=== PATIENT | female | born 1970 | race Two or more races ===

== ENCOUNTER 2024-03-02 09:46 | Emergency (ER) | payer BC ==
[~2024-03-02] VITALS: Ht 162.6 cm; Wt 72.6 kg
[2024-03-02] MEDS ORDERED: methylPREDNISolone SOD SUCC 125 MG/2 ML VIAL ONE (09:58)
[2024-03-02] MEDS: methylPREDNISolone SOD SUCC 125 MG/2 ML VIAL IV ONE (10:00)
[2024-03-02] MEDS ORDERED: FUROSEMIDE 20 MG/2 ML VIAL ONE ×2 (10:04→10:08)
[2024-03-02] MEDS: FUROSEMIDE 20 MG/2 ML VIAL IV ONE ×2 (10:06→10:09)
[2024-03-02 10:24] LABS: BASOPHILS # (AUTO) 0.1 K/UL (0.0-0.2); BASOPHILS % (AUTO) 0.8 % (0.0-2.0); EOSINOPHILS # (AUTO) 0.2 K/uL (0.0-0.7); EOSINOPHILS % (AUTO) 1.5 % (0.0-7.0); HEMATOCRIT 41.1 % (31.2-41.9); LYMPHOCYTES # (AUTO) 6.5 K/uL (0.8-4.8); LYMPHOCYTES % (AUTO) 38.4 % (20.5-51.5); MEAN CORPUSCULAR HEMOGLOBIN 28.2 uug (24.7-32.8); MEAN CORPUSCULAR HGB CONC 32 g/dL (32.3-35.6); MONOCYTES # (AUTO) 0.4 K/uL (0.1-1.30); MONOCYTES % (AUTO) 2.7 % (0.0-11.0); NEUTROPHILS # (AUTO) 9.5 K/uL (1.8-8.9); NEUTROPHILS % (AUTO) 56.6 % (38.5-71.5); PLATELET COUNT (AUTO) 419 K/uL (179-408); RED BLOOD CELL COUNT(AUTO) 4.62 MIL/uL (3.63-4.92); WHITE BLOOD COUNT (AUTO) 16.8 K/uL (3.8-11.8)
[2024-03-02] MEDS: SUCCINYLCHOLINE CHLORIDE 200 MG/10 ML VIAL IV ONE (10:35)
[2024-03-02 10:38] LABS: ALBUMIN 2.4 g/dL (3.4-5.0); BILIRUBIN,DIRECT 0.1 mg/dL (0.0-0.2); BILIRUBIN,TOTAL 0.3 mg/dL (0.2-1.0); CALCIUM 7.7 mg/dL (8.5-10.1); CREATININE 0.8 mg/dL (0.6-1.3)
[2024-03-02] MEDS: ETOMIDATE 20 MG/10 ML VIAL IV ONE (10:38)
[2024-03-02] MEDS: PIPERACILLIN SODIUM/TAZOBACTAM 3.375 G in IV DEXTROSE 5% 50 ML IV ONE (11:20)
[2024-03-02 11:21] LABS: ABG BASE EXCESS -10.8 mmol/L (-2.0-3.0); ABG HCO3 20.1 mmol/L (21.0-28.0); ABG PCO2 67.5 mmHg (32.0-45.0); ABG PH 7.091 (7.350-7.450); ABG PO2 49.8 mmHg (83.0-108.0); ABG SITE UAL; ABG TOTAL HEMOGLOBIN 14.9 G/dL (12.0-16.0); AaDO2 69.9 mmHg; COHb 0.7 % (0.5-1.5); MetHb 0.1 % (0.0-1.5); O2Hb 69.9 % (94.0-98.0); VT, ABG 440 mL
[2024-03-02] MEDS ORDERED: PIPERACILLIN/TAZOBACTAM/D5W 50 ML IV ONE (11:21)
[2024-03-02] MEDS ORDERED: PROPOFOL 100 ML ONE ×2 (11:33→16:01)
[2024-03-02] MEDS ORDERED: PROPOFOL 100 ML IV PRN ×2 (11:45→12:30)
[2024-03-02] MEDS: PROPOFOL 1,000 MG/100 ML BOTTLE IV ONE (11:55)
[2024-03-02 12:00] LABS: ABG BASE EXCESS -10.8 mmol/L (-2.0-3.0); ABG HCO3 22.3 mmol/L (21.0-28.0); ABG PCO2 92.7 mmHg (32.0-45.0); ABG SITE RIGHT RADIAL; ABG TOTAL HEMOGLOBIN 13.6 G/dL (12.0-16.0); AaDO2 70.9 mmHg; COHb 0.7 % (0.5-1.5); MetHb 0.1 % (0.0-1.5); O2Hb 73.2 % (94.0-98.0)
[2024-03-02 12:04] LABS: LACTIC ACID 4.7 mmol/L (0.4-2.0)
[2024-03-02] MEDS: IV NS 1000 ML 1,000 ML IV ONE (12:25)
[2024-03-02] MEDS ORDERED: ONDANSETRON 4 MG/2 ML VIAL IV PRN (12:30)
[2024-03-02] MEDS ORDERED: ENOXAPARIN SODIUM 40 MG/0.4 ML DISP.SYRIN SQ SCH (12:30)
[2024-03-02] MEDS ORDERED: REMEDY ESSENTIAL ZINC PASTE 113 GM TP PRN (12:30)
[2024-03-02 12:55] LABS: ABG BASE EXCESS -6.8 mmol/L (-2.0-3.0); ABG HCO3 22.9 mmol/L (21.0-28.0); ABG PCO2 63.9 mmHg (32.0-45.0); ABG PH 7.172 (7.350-7.450); ABG PO2 44.4 mmHg (83.0-108.0); ABG SITE RIGHT FEMORAL; ABG TOTAL HEMOGLOBIN 15.3 G/dL (12.0-16.0); AaDO2 67.6 mmHg; COHb 0.6 % (0.5-1.5); MetHb 0.1 % (0.0-1.5); O2Hb 71.5 % (94.0-98.0); VT, ABG 440 mL
[2024-03-02] MEDS ORDERED: DOBUTamine IV 250 ML IV PRN (13:00)
[2024-03-02] MEDS: BUMETANIDE INJ 6 MG in IV DEXTROSE 5% 36 ML IV ONE (13:00)
[2024-03-02] MEDS ORDERED: BUMETANIDE 1 MG/4 ML VIAL ONE (13:00)
[2024-03-02] MEDS: BUMETANIDE 1 MG/4 ML VIAL IV ONE (13:02)
[2024-03-02] MEDS ORDERED: HEPARIN/D5W DRIP 500 ML ONE (13:26)
[2024-03-02 13:30] LABS: ABG BASE EXCESS -7.3 mmol/L (-2.0-3.0); ABG HCO3 21.4 mmol/L (21.0-28.0); ABG PCO2 56.3 mmHg (32.0-45.0); ABG PH 7.198 (7.350-7.450); ABG PO2 48.8 mmHg (83.0-108.0); ABG SITE RIGHT FEMORAL; ABG TOTAL HEMOGLOBIN 14.6 G/dL (12.0-16.0); AaDO2 74.9 mmHg; COHb 0.6 % (0.5-1.5); MetHb 0.1 % (0.0-1.5); O2Hb 77.7 % (94.0-98.0); VT, ABG 420 mL
[2024-03-02] MEDS: HEPARIN/D5W DRIP 500 ML IV ONE (13:30)
[2024-03-02] MEDS ORDERED: HEPARIN SODIUM,PORCINE 5,000 UNITS/ML VIAL ONE (13:42)
[2024-03-02 13:59] LABS: ABG BASE EXCESS -7.2 mmol/L (-2.0-3.0); ABG HCO3 20.3 mmol/L (21.0-28.0); ABG PCO2 48.3 mmHg (32.0-45.0); ABG PH 7.242 (7.350-7.450); ABG PO2 46.9 mmHg (83.0-108.0); ABG SITE LEFT FEMORAL; ABG TOTAL HEMOGLOBIN 15.3 G/dL (12.0-16.0); AaDO2 75.4 mmHg; COHb 1.1 % (0.5-1.5); O2Hb 77.3 % (94.0-98.0); VT, ABG 420 mL
[2024-03-02] MEDS ORDERED: ONDANSETRON 4 MG/2 ML VIAL ONE (14:44)
[2024-03-02] MEDS: ONDANSETRON 4 MG/2 ML VIAL IV ONE (14:55)
[2024-03-02] MEDS ORDERED: NOREPINEPHRINE 8MG/NS 250ML 250 ML IV ONE (15:06)
[2024-03-02] MEDS: NOREPINEPHRINE 8MG/NS 250ML 250 ML IV PRN (15:35)
[2024-03-02 16:00] VITALS: BP 90/52
[2024-03-02 16:20] LABS: BASOPHILS % (AUTO) 0.1 % (0.0-2.0); EOSINOPHILS % (AUTO) 0.1 % (0.0-7.0); HEMATOCRIT 44.8 % (31.2-41.9); HEMOGLOBIN 14.4 g/dL (10.9-14.3); LYMPHOCYTES % (AUTO) 3.7 % (20.5-51.5); MEAN CORPUSCULAR HEMOGLOBIN 27.8 uug (24.7-32.8); MEAN CORPUSCULAR HGB CONC 32 g/dL (32.3-35.6); MEAN CORPUSCULAR VOLUME 86.6 fL (75.5-95.3); MONOCYTES # (AUTO) 2.2 K/uL (0.1-1.30); MONOCYTES % (AUTO) 8.1 % (0.0-11.0); NEUTROPHILS # (AUTO) 23.7 K/uL (1.8-8.9); PLATELET COUNT (AUTO) 414 K/uL (179-408); RED BLOOD CELL COUNT(AUTO) 5.17 MIL/uL (3.63-4.92); RED CELL DISTRIBUTION WIDTH 14.3 % (12.3-17.7); WHITE BLOOD COUNT (AUTO) 26.9 K/uL (3.8-11.8)
[2024-03-02 16:21] LABS: DIFFERENTIAL COMMENT 1
[2024-03-02 16:33] LABS: ALBUMIN 2.6 g/dL (3.4-5.0); BILIRUBIN,TOTAL 0.5 mg/dL (0.2-1.0); CALCIUM 7.4 mg/dL (8.5-10.1); MAGNESIUM 1.4 mg/dL (1.8-2.4); POTASSIUM 4.2 mmol/L (3.5-5.1); TOTAL PROTEIN, SERUM 6.6 g/dL (6.4-8.2)
[2024-03-02 16:50] VITALS: O2SAT 86
[2024-03-02] MEDS ORDERED: PIPERACILLIN SODIUM/TAZOBACTAM 3.375 G in IV DEXTROSE 5% 50 ML IV SCH (18:00)
[2024-03-03] MEDS ORDERED: PANTOPRAZOLE SODIUM 40 MG VIAL IV SCH (09:00)
== END 2024-03-02 20:02 | disposition short-term general hospital (02) ==
LOC: ER 09:46
DX: I21.4 Non-ST elevation (NSTEMI) myocardial infarction (principal); R57.0 Cardiogenic shock; R09.2 Respiratory arrest
CPT/HCPCS: 99291; 93307; 31500; 96365; 96375; 96366; 71045 ×3; 96367; 96361; 87081; 80053; 83880; 83735; 84100; 85025 ×2; 84145; 85730; 84484 ×3; 36415; 82803 ×4; 99292; 83605 ×2; 96368; 96376; 87040; 93005; 80076; 80048; 36600 ×8; J3490; J1940 ×2; J1644 ×2; J2919; J2405; J2543; J0330; J7040 ×3; A4606; A4663